=== PATIENT | male | born 1960 | race Caucasian/White ===

== ENCOUNTER 2021-06-06 22:44 | Observation (INO) | payer OTHER, SELFPAY ==
--- NOTE | ~2021-06-06 | XR_ITS ---
EXAMINATION: XR chest 2V DATE: 06/06/2021 23:28 INDICATION: Chest pain. Atrial fibrillation. TECHNIQUE: Frontal and lateral views of the chest were obtained. COMPARISON: CT abdomen 06/03/2005 FINDINGS: The chest demonstrates clear lungs without pneumonia, pleural effusion, or pneumothorax. Th e heart size is normal. Surgical clips in the right upper quadrant are likely from cholecystectomy. T here is a compression fracture in mid thoracic spine. IMPRESSION: 1. No acute cardiopulmonary disease. 2. Age-indeterminate compression fracture in mid thoracic spine. Reviewed, dictated and finalized at location A. RNED [facility]ORTER
--- NOTE | 2021-06-06 22:45 | ECG_ITS ---
Measurements Intervals [place] Rate: 151 P: [place]: 0 QRS: -37 QRSD: 92 T: 83 QT: 307 QTc: 488 Interpretive Statements ATRIAL FIBRILLATION WITH RAPID VENTRICULAR RESPONSE LEFT AXIS DEVIATION INCOMPLETE RIGHT BUNDLE BRANCH BLOCK BORDERLINE ST-T WAVE ABNORMALITY- HIGH LATERAL LEADS BASELINE ARTIFACT- I, II, AVR, AVL ABNORMAL ECG Electronically Signed On 06-07-2021 7:56:32 EDUCATION TECHNICIAN by Marvin Bullock D.O.
[2021-06-06 22:47] VITALS: BP 147/85; PULSE 106; RESP 17; TEMP 37; O2SAT 96
[2021-06-06 23:15] VITALS: BP 157/130; PULSE 133
[2021-06-06] MEDS: dilTIAZem HCl INJ 25 MG/5 ML VIAL 20 MG IV PUSH (23:15)
[2021-06-06] MEDS: dilTIAZem 100 MG/100 ML 100 MG/100 ML BAG IV CONT (23:15)
[2021-06-06 23:27] LABS: Basophils Absolute Auto 0.1 K/mm3 (0.0-0.1); Basophils Percent Auto 1.1 % (0.2-1.2); Eosinophils Absolute Auto 0.5 K/mm3 (0-0.3); Eosinophils Percent Auto 4.7 % (0-4.4); Hematocrit 45.8 % (42.0-52.0); Hemoglobin 16.1 g/dL (14.0-18.0); Immature Granulocyte Absolute 0.04 K/mm3 (0.00-0.031); Immature Granulocyte Percent A 0.4 % (0-0.5); Lymphocytes Absolute Auto 2.91 K/mm3 (0.9-3.2); Lymphocytes Percent Auto 29.2 % (18.3-44.2); Mean Corpuscular HGB Conc 35.2 g/dl (32-36); Mean Corpuscular Hemoglobin 34.8 pg (26-34); Mean Corpuscular Volume 99.1 fl (80-100); Mean Platelet Volume 10.8 fl (7.4-10.4); Monocytes Absolute Auto 0.6 K/mm3 (0.1-0.6); Monocytes Percent Auto 6.2 % (2.6-8.5); Neutrophils Absolute Auto 5.8 K/mm3 (1.3-6.7); Neutrophils Percent Auto 58.4 % (45.5-73.1); Platelet Count Result 223 k/mm3 (150-375); Red Blood Count 4.62 M/mm3 (4.6-6.20); Red Cell Distribution Width 13.2 % (11.5-14.5)
[2021-06-06 23:38] LABS: Alanine Aminotransferase 34 U/L (4-50); Albumin Level 4.6 g/dL (3.5-5.1); Alkaline Phosphatase 47 U/L (38-126); Anion Gap 10 mmol/L (8-16); Aspartate Amino Transferase 39 U/L (17-59); Blood Urea Nitrogen 14 mg/dL (9-20); Calcium 9.5 mg/dL (8.4-10.2); Carbon Dioxide 28 mmol/L (22-30); Chloride 103 mmol/L (98-107); Estimated Glomerular Filt Rate > 60; Glucose 194 mg/dL (65-110); Lipase 147 U/L (23-300); Potassium 3.3 mmol/L (3.4-5.0); Sodium 141 mmol/L (137-145)
[2021-06-06 23:40] VITALS: BP 117/75; PULSE 97; RESP 14; O2SAT 97
[2021-06-06 23:46] LABS: INR 0.9; Prothrombin Time 12.5 Seconds (11.1-14.7)
[2021-06-06 23:47] VITALS: PULSE 89
[2021-06-06 23:47] LABS: Partial Thromboplastin Time 26.6 SECONDS (22.3-36.8)
[2021-06-06 23:50] VITALS: BP 117/75; PULSE 94; RESP 12; O2SAT 97
[2021-06-07] VITALS (20 sets, daily range): BP systolic 94–125; BP diastolic 63–77; PULSE 66–101; RESP 13–18; O2SAT 94–100
[2021-06-07 00:09] LABS: Troponin I 0.013 ng/mL (0.000-0.034)
--- NOTE | 2021-06-07 01:03 | ED.GENADULT ---
HPI - General Adult General Chief complaint: Chest Pain Stated complaint: chest pain Time Seen by Provider: 06/06/21 23:00 History of Present Illness HPI narrative: Patient is a 60-year-old gentleman who presents the emergency department with chief complaint of chest pains and palpitations. Patient states that he has history of hemochromatosis and reports this evening started having some tightness in his chest and reported that he had where he started having palpitations and felt as though his heart was beating extremely fast. Patient denies syncope denies any other injuries patient reports that they have no fever no chills reports no vomiting or diarrhea. Related Data Allergies Allergy/AdvReac Type Severity Reaction Status Date / Time atorvastatin Allergy Unknown bad cramps Verified 06/06/21 22:44 andn diarrhea codeine Allergy Unknown Pt does Verified 06/06/21 22:44 not remember reaction Penicillins Allergy Unknown Pt does Verified 06/06/21 22:44 not remember reaction pollen extracts Allergy Unknown Pt does Verified 06/06/21 22:44 not remember reaction potassium chloride Allergy Unknown Pt does Verified 06/06/21 22:44 not remember reaction simvastatin Allergy Unknown muscle Verified 06/06/21 22:44 cramps Review of Systems Review of Systems: A 10 system review of systems was completed on the patient and is negative except for what is stated in the HPI. Nursing and ancillary documentation was reviewed. [facility] Surgical History Surgical History H/O cataract extraction History of vasectomy Hx of cholecystectomy Status post trigger finger release Family History Family History Mother Diabetes mellitus Sibling Family history of malignant neoplasm of kidney Social History Social History Smoking status: Current some day smoker Smoking end date: 06/20/11 Alcohol intake: current Exam Narrative: GENERAL: Well-appearing, well-nourished, and in no acute distress. HEAD: Normocephalic, atraumatic. EYES: PERRLA and EOMI. ENT: Nares clear, no rhinorrhea or epistaxis. Mucous membranes moist. NECK: Supple. CHEST: Clear to auscultation. No respiratory distress. HEART: Irregular rate and rhythm. No murmur heard. Normal peripheral pulses. ABDOMEN: Soft, nontender, nondistended, normal active bowel sounds. EXTREMITIES: Normal range of motion. No edema. SKIN: Warm, dry, no rash. NEURO: No focal deficits. Alert and oriented x3. PSYCH: Normal mood and affect. Course Course Emergency Course: EKG shows atrial fibrillation with a rate of 151 Chest x-ray shows no evidence of focal infiltrate Vital Signs Vital signs: Vital Signs Temperature 37.0 C 06/06/21 22:47 Pulse Rate 106 H 06/06/21 22:47 Respiratory Rate 17 06/06/21 22:47 Blood Pressure 147/85 H 06/06/21 22:47 Pulse Oximetry 96 06/06/21 22:47 Temperature 37.0 C 06/06/21 22:47 Pulse Rate 80 06/07/21 00:26 Respiratory Rate 18 06/07/21 00:26 Blood Pressure 100/68 06/07/21 00:26 Pulse Oximetry 100 06/07/21 00:26 Medical Decision Making Vital Signs Vital Signs: Vital Signs Temperature 37.0 C 06/06/21 22:47 Pulse Rate 106 H 06/06/21 22:47 Respiratory Rate 17 06/06/21 22:47 Blood Pressure 147/85 H 06/06/21 22:47 Pulse Oximetry 96 06/06/21 22:47 Temperature 37.0 C 06/06/21 22:47 Pulse Rate 80 06/07/21 00:26 Respiratory Rate 18 06/07/21 00:26 Blood Pressure 100/68 06/07/21 00:26 Pulse Oximetry 100 06/07/21 00:26 Lab Data Result diagrams: 06/06/21 23:13 06/06/21 23:13 Labs: Lab Results 06/06/21 06/06/21 06/06/21 Range/Units 23:13 23:13 23:13 WBC 10.0 (4.5-10.0) K/mm3 RBC 4.62 (4.6-6
[2021-06-07 01:46] LABS: Magnesium 2.1 mg/dL (1.6-2.3)
[2021-06-07] MEDS: POTASSIUM CHLORIDE 20 MEQ PACKET (FOR LIQUID) 40 MEQ PO (02:13)
[2021-06-07] MEDS: ENOXAPARIN 30 MG/0.3 ML SYRINGE SUB-Q (02:16)
[2021-06-07] MEDS: ENOXAPARIN 100 MG/ML SYRINGE SUB-Q (02:17)
[2021-06-07 02:30] LABS: Magnesium 2.2 mg/dL (1.6-2.3)
--- NOTE | 2021-06-07 03:31 | PM.IMHP ---
H&P: HPI History of Present Illness Date/Time: 06/07/21 03:31 Chief Complaint: Chest pain palpitations Narrative: Patient is a 60-year-old gentleman who presents the emergency department with chief complaint of chest pains and palpitations. Patient states that he has history of hemochromatosis and reports this evening started having some tightness in his chest and reported that he had where he started having palpitations and felt as though his heart was beating extremely fast. Patient was noted to be sweaty at that moment and hence came to the ER for evaluation. He denies any shortness of breath or nausea, vomiting. Denies any abdominal pain he denies any history of heart disease in the past that she has been diagnosed with. He gets phlebotomy every 2 months for his underlying hemochromatosis. Review of Systems Review of Systems: - CONSTITUTIONAL: Denies weight loss, fever and chills. - HEENT: Denies changes in vision and hearing - RESPIRATORY: Denies SOB and cough. - CV: Reports palpitations and CP. - GI: Denies abdominal pain, nausea, vomiting and diarrhea. - : Denies dysuria and urinary frequency. - MSK: Denies myalgia and joint pain. - SKIN: Denies rash and pruritus. - NEUROLOGICAL: Denies headache and syncope. - PSYCHIATRIC: Denies recent changes in mood. Denies anxiety and depression. All systems reviewed & are unremarkable except as noted in HPI and below Constitutional: Constitutional: Reports fatigue and Reports weakness Neurologic: Reports weakness Endocrine: Endocrine: Reports fatigue PMFSH Surgical History Surgical History H/O cataract extraction History of vasectomy Hx of cholecystectomy Status post trigger finger release Family History Family History Mother Diabetes mellitus Sibling Family history of malignant neoplasm of kidney Social History Social History Smoking status: Current some day smoker Smoking end date: 06/20/11 Alcohol intake: current Meds Home Medications and Allergies Home Medications Medication Instructions Recorded Confirmed Type pitavastatin calcium 2 mg tablet 2 mg PO DAILY #90 tablet 05/01/20 05/30/20 Rx sertraline 50 mg tablet 50 mg PO DAILY #90 tablet 05/05/20 05/30/20 Rx lisinopril 10 See Rx Instructions .ROUTE 10/17/20 Rx mg-hydrochlorothiazide 12.5 mg .COMPLEX #90 tablet tablet metoprolol tartrate 50 mg tablet See Rx Instructions .ROUTE 12/25/20 Rx .COMPLEX #90 tablet allopurinol 100 mg tablet See Rx Instructions .ROUTE 05/04/21 Rx .COMPLEX #90 tablet Allergies Allergy/AdvReac Type Severity Reaction Status Date / Time codeine Allergy Unknown Pt does Verified 06/06/21 22:44 not remember reaction Penicillins Allergy Unknown Pt does Verified 06/06/21 22:44 not remember reaction Vital Signs Vital Signs - 24 hr 06/06/21 22:47 06/06/21 23:15 06/06/21 23:40 Temperature 98.6 F Pulse Rate 106 H 133 H 97 Respiratory Rate 17 14 Blood Pressure 147/85 H 157/130 H 117/75 Pulse Oximetry 96 97 06/06/21 23:47 06/06/21 23:50 06/07/21 00:12 Temperature Pulse Rate 89 94 75 Respiratory Rate 12 14 Blood Pressure 117/75 102/71 Pulse Oximetry 97 97 06/07/21 00:26 06/07/21 01:27 Temperature Pulse Rate 80 79 Respiratory Rate 18 16 Blood Pressure 100/68 98/77 L Pulse Oximetry 100 97 Exam Narrative: GENERAL: Well-appearing, well-nourished, and in no acute distress. HEAD: Normocephalic, atraumatic. EYES: PERRLA and EOMI. ENT: Nares clear, no rhinorrhea or epistaxis. Mucous membranes moist. NECK: Supple. CHEST: Clear to auscultation. No respiratory distress. HEART: Irregular rate and rhythm. No murmur heard. Normal peripheral pulses. ABDOMEN: Soft, nontender, nondistended, normal act
[2021-06-07 05:10] LABS: Troponin I 0.037 ng/mL (0.000-0.034)
--- NOTE | 2021-06-07 06:48 | PC.NURSE ---
Pt updated on plan of care by ED MD. will continue to monitor.
--- NOTE | 2021-06-07 06:51 | PC.NURSE ---
Per minister of religion, pt's am labs already drawn and pt's 6-HR troponin retimed for 0730. pt remains on 5mg cardizem drip ivpb. will continue to monitor.
[2021-06-07 08:12] LABS: Cholesterol 220 mg/dL (0-200); HDL Direct 37 mg/dL; Triglycerides 305 mg/dL (<150)
[2021-06-07 08:16] LABS: Troponin I 0.027 ng/mL (0.000-0.034)
--- NOTE | 2021-06-07 08:16 | PM.IMPN ---
Progress Note: A&P Assessment and Plan (1) Atrial fibrillation with RVR: Code(s): I48.91 - Unspecified atrial fibrillation Status: Acute Assessment and Plan: Newly diagnosed atrial fibrillation with rapid ventricular rate started on Cardizem drip currently rate controlled. continue metoprolol that he takes at home. Lovenox has been started may switch to oral agent at the time of discharge. TSH is normal mildly hypokalemic which will be replaced checked magnesium which normal. chest pain initial troponin negative no prior history of coronary artery disease. Get serial cardiac enzymes. Second set does come back elevated suggesting non ST-elevation [place]. Continue to trend cardiac enzyme cardiology consultation in a.m. 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 Currently hemoglobin is 16/45 (3) Essential (primary) hypertension: Code(s): I10 - Essential (primary) hypertension Status: Acute Assessment and Plan: currently blood pressure controlled BP 125/71. Continue home medications. Patient is on lisinopril hydrochlorothiazide at home also on metoprolol tartrate 50 mg once a day (4) Generalized anxiety disorder: Code(s): F41.1 - Generalized anxiety disorder Status: Acute Assessment and Plan: Currently controlled. Continue home medications. (5) Mixed hyperlipidemia: Code(s): E78.2 - Mixed hyperlipidemia Status: Acute Assessment and Plan: Continue home medications. Patient is on atorvastatin. (6) Obesity, unspecified: Qualifiers: Obesity type: due to excess calories Obesity classification: adult class 2 (BMI 35 - 39.9) Serious obesity comorbidity presence: with serious comorbidity Body mass index: BMI 39.0-39.9 Qualified Code(s): E66.01 - Morbid (severe) obesity due to excess calories; Z68.39 - Body mass index [BMI] 39.0-39.9, adult Code(s): E66.9 - Obesity, unspecified Status: Acute Assessment and Plan: Patient counseled regarding calorie reduction and increase physical activity. Additional Plan # DVT prophylaxis on Lovenox # full code status Subjective Date/time seen: 06/07/21 10:16 Narrative. Patient is a 60-year-old gentleman who presents the emergency department with chief complaint of chest pains and palpitations. Patient states that he has history of hemochromatosis and reports this evening started having some tightness in his chest and reported that he had where he started having palpitations and felt as though his heart was beating extremely fast. Patient was noted to be sweaty at that moment and hence came to the ER for evaluation. He denies any shortness of breath or nausea, vomiting. Denies any abdominal pain he denies any history of heart disease in the past that she has been diagnosed with. He gets phlebotomy every 2 months for his underlying hemochromatosis. Patient presents mild elevation of troponin at 0.0237. Repeat troponin 0.027. S: Patient is examined at the bedside. His was present at the bedside. He denies chest pain. He is feeling comfortable. No active complaints. Review of Systems Review of Systems: All systems reviewed & are unremarkable except as noted in HPI and below Constitutional: Constitutional: Reports as per HPI, Reports fatigue and Reports weakness Eyes: Eyes: Reports as per HPI and Denies blurry vision ENT: Reports as per HPI and Denies epistaxis Cardiovascular: Cardiovascular: Reports as per HPI, Denies chest pain, Denies leg edema, Denies lightheadedness and Denies palpitations Respiratory: Respiratory: Reports as per HPI, Denies cough and Denies dyspnea Gastrointestinal: Gastrointestinal: Reports as per HPI, Denies nausea and Denies vomiting Genitour
[2021-06-07 08:23] LABS: LDL Cholesterol Direct 139 mg/dL
--- NOTE | 2021-06-07 09:19 | PM.CNCAR ---
Assessment and Plan Assessment and plan (1) Atrial fibrillation with RVR: Code(s): I48.91 - Unspecified atrial fibrillation Status: Acute Assessment and Plan: New onset AFib RVR which occurred even though the patient has been compliant with his metoprolol tartrate 50 mg q.p.m., Heart rate now recently controlled with IV diltiazem. TSH normal. No evidence of valve disease or cardiomyopathy. Borderline elevation of troponin, probably due to RVR, but no clinical evidence of CAD. The patient's alcohol intake may be a predisposing factor and may have sleep apnea as well. Check echo. Apnea link to evaluate for sleep apnea CHADS2 Vasc score is 1 (unless he is actually a diabetic) so in the long run he may be able to simply take an aspirin, but since we do not have echo results back yet and we may also be performing a cardioversion I recommend anticoagulation at this point. Change Lovenox to Xarelto 20 mg daily. Change IV diltiazem to p.o. metoprolol Observe overnight. See if the patient converts to sinus rhythm with metoprolol. If not, we can proceed with cardioversion tomorrow then discharge. If the patient chooses not to proceed with cardioversion (he is apprehensive) then we will follow him in the office to see how well he is tolerating the AFib and if he converts spontaneously in the next few weeks. Patient is were counseled extensively about atrial fibrillation, risk of stroke, risk of recurrence, and different approaches to treatment. Tx depends heavily on how symptomatic the patient is as well. (2) Essential (primary) hypertension: Code(s): I10 - Essential (primary) hypertension Status: Acute Assessment and Plan: Will hold lisinopril HCTZ and tx w/ metoprolol for now. (3) Mixed hyperlipidemia: Code(s): E78.2 - Mixed hyperlipidemia Status: Acute Assessment and Plan: Intolerant of pitavastatin due to GI issues. (4) Glucose intolerance: Code(s): E74.39 - Other disorders of intestinal carbohydrate absorption Status: Acute Assessment and Plan: Blood sugar 194 on admission. Check A1C. History of Present Illness History of Present Illness Consult date/time: 06/07/21 09:19 Consult reason: atrial fibrillation Reason For Visit: Atrial fibrillation w rapid ventricular response Narrative: Shaihd Dickens is a60 y.o. male whom I was asked to see at the request of the hospitalists for my advice and opinion regarding his new onset atrial fib RVR and chest pain. H/O hemochromatosis, HTN, hyperlipidemia. The patient was in his normal state of health yesterday, sitting watching TV when he suddenly developed fast heartbeats and palpitations as well as some chest discomfort/indigestion. He got up to take his evening medications but did not feel any better and came to the emergency room with AFib RVR, heart rate in the 150s. He was started on Lovenox and a Cardizem drip and this morning on 5 milligrams/hour his heart rate is running 70-110 beats per minute. He is feeling a lot better. He has never had anything happen like this before. He has hypertension but no diabetes. He has hyperlipidemia and is supposed to take pitavastatin but has stopped it due to GI issues; his had diarrhea with another statin. He does smoke few cigarettes a day. No history of any heart murmurs or thyroid disease. He does have some SMITH (patient and his have discrepant perceptions about how much SMITH he has, but the patient does not perceive a to be a problem) but no exertional chest pain. He snores a lot and has some daytime fatigue but has not been evaluated for sleep apnea. He drinks 3-5 drinks every other day (according to his ; he feels that is less). There are no issues with bleeding.
--- NOTE | 2021-06-07 10:05 | PC.NURSE ---
Called and spoke with Dr. Ge. She wants this RN to stop the diltiazem drip and start patient on scheduled metoprolol.
[2021-06-07] MEDS: ASPIRIN 81 MG ENTERIC TABLET PO (10:09)
[2021-06-07] MEDS: METOPROLOL TARTRATE 50 MG TAB PO (10:09)
--- NOTE | 2021-06-07 14:39 | ECG_ITS ---
Measurements Intervals [place] Rate: 62 P: 11 [place]: 172 QRS: -7 QRSD: 90 T: -42 QT: 433 QTc: 440 Interpretive Statements SINUS RHYTHM NONSPECIFIC T-WAVE ABNORMALITY- DIFFUSE LEADS BASELINE ARTIFACT- II, III, AVR, AVF, V1-V6 BORDERLINE ECG Electronically Signed On 06-07-2021 17:23:37 VISCOSE CELLAR CHARGE HAND by Marvin Bullock D.O.
--- NOTE | 2021-06-07 14:50 | PC.NURSE ---
pt converted to SR. EKG obtained and Dr. Ge notified. She will be coming down to see patient this afternoon
[2021-06-07] MEDS: RIVAROXABAN 20 MG TABLET PO (16:59)
--- NOTE | 2021-06-07 17:35 | PM.DS ---
DS: Admitting Diagnosis Discharge Date 06/07/2021 Admitting Diagnosis (1) Atrial fibrillation with RVR: (2) Disorder of iron metabolism: (3) Essential (primary) hypertension: (4) Generalized anxiety disorder: (5) Mixed hyperlipidemia: (6) Obesity, unspecified: DS: Discharge Diagnosis Discharge Diagnosis (1) Atrial fibrillation with RVR: Code(s): I48.91 - Unspecified atrial fibrillation Status: Acute Assessment and Plan: Newly diagnosed atrial fibrillation with rapid ventricular rate started on Cardizem drip currently rate controlled. continue metoprolol that he takes at home. Lovenox has been started may switch to oral agent at the time of discharge. TSH is normal mildly hypokalemic which will be replaced checked magnesium which normal. chest pain initial troponin negative no prior history of coronary artery disease. Get serial cardiac enzymes. Second set does come back elevated suggesting non ST-elevation [place]. Continue to trend cardiac enzyme cardiology consultation in a.m. already received aspirin will continue 81 mg daily. 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 Currently hemoglobin is 16/45 (3) Essential (primary) hypertension: Code(s): I10 - Essential (primary) hypertension Status: Acute Assessment and Plan: currently blood pressure controlled BP 125/71. Continue home medications. Patient is on lisinopril hydrochlorothiazide at home also on metoprolol tartrate 50 mg once a day (4) Generalized anxiety disorder: Code(s): F41.1 - Generalized anxiety disorder Status: Acute Assessment and Plan: Currently controlled. Continue home medications. (5) Mixed hyperlipidemia: Code(s): E78.2 - Mixed hyperlipidemia Status: Acute Assessment and Plan: Continue home medications. Patient is on atorvastatin. (6) Obesity, unspecified: Qualifiers: Obesity type: due to excess calories Obesity classification: adult class 2 (BMI 35 - 39.9) Serious obesity comorbidity presence: with serious comorbidity Body mass index: BMI 39.0-39.9 Qualified Code(s): E66.01 - Morbid (severe) obesity due to excess calories; Z68.39 - Body mass index [BMI] 39.0-39.9, adult Code(s): E66.9 - Obesity, unspecified Status: Acute Assessment and Plan: Patient counseled regarding calorie reduction and increase physical activity. DS: Summary Hospital Course Reason for hospitalization: Chest pain and palpitations. Hospital Course: New onset AFib RVR which occurred even though the patient has been compliant with his metoprolol tartrate 50 mg q.p.m., Heart rate now recently controlled with IV diltiazem. TSH normal. No evidence of valve disease or cardiomyopathy. Borderline elevation of troponin, probably due to RVR, but no clinical evidence of CAD. The patient's alcohol intake may be a predisposing factor and may have sleep apnea as well. Referral to apnea link to evaluate for sleep apnea CHADS2 Vasc score is 1 (unless he is actually a diabetic) so in the long run he may be able to simply take an aspirin, but since we do not have echo results back yet and we may also be performing a cardioversion I recommend anticoagulation at this point. Per cardiology, we changed Lovenox to Xarelto 20 mg daily. Patient was transitioned from IV diltiazem to p.o. metoprolol. Plan was to observe the patient overnight. He spontaneously converted to sinus rhythm with metoprolol. He was cleared by cardiology for discharge. Patient will follow up with cardiology as an outpatient. Status at Discharge Functional status at discharge: independent ambulation Overall status at discharge: patient is back to baseline Time Spent with Patient Time attestation: Total time spent providing and/or coordinating discharge services
== END 2021-06-07 18:08 | disposition home or self-care (01) ==
LOC: ANHED 06-07 01:26 → ANHIMU 06-07 17:34 → ANH3MEDSUR 06-09 11:23
PROVIDERS: Admitting Provider Internal Medicine; Emergency Provider Emergency Medicine; PCP Family Medicine; Visit Provider Internal Medicine
DX: I48.91 Unspecified atrial fibrillation (principal); E83.119 Hemochromatosis, unspecified; R07.9 Chest pain, unspecified; E78.5 Hyperlipidemia, unspecified; E66.01 Morbid (severe) obesity due to excess calories; F17.210 Nicotine dependence, cigarettes, uncomplicated; F41.9 Anxiety disorder, unspecified; I10 Essential (primary) hypertension; Z68.39 Body mass index [BMI] 39.0-39.9, adult; Z90.49 Acquired absence of other specified parts of digestive tract
CPT/HCPCS: 36415; 71046; 80053; 80061; 83690; 83735; 84443; 84484; 85025; 85610; 85730; 93005; 96365; 96366; 96372; 99285; A9270; G0378; J1650

== ENCOUNTER → 2021-07-03 01:01 | Outpatient (CLI) | payer OTHER, SELFPAY ==
[2021-07-04 18:18] LABS: SARS-CoV-2 RNA PCR Negative
== END ==
PROVIDERS: PCP Family Medicine; Visit Provider Family Medicine
DX: J02.9 Acute pharyngitis, unspecified (principal); R51.9 Headache, unspecified; Z20.822 Contact with and (suspected) exposure to COVID-19
CPT/HCPCS: C9803; U0003; U0005

== ENCOUNTER 2021-07-09 07:37 | Outpatient (CLI) | payer OTHER, SELFPAY ==
--- NOTE | 2021-07-15 13:12 | WPDHOMESLEEP ---
Sleep Study - Home Unattended Date of Study: 07/09/21 Ordering Provider: Netta Ge MD Interpreting Provider: Ursula Oconnell MD Home Sleep Study Type: Watch PAT Height: 1.85 m Weight: 131.542 kg Body Mass Index: 38.2 Neck Circumference (inches): 18 [place]: 4 Reason for Sleep Study Atrial fibrillation, snoring, night time awakenings Sleep History Shahid Dickens is a 60 year old male with hypertension, gout and atrial fibrillation on chronic anticoagulation. He also has generalized anxiety and hyperlipidemia. His biotech production specialist referred him for a sleep study for concerns associated with his new onset atrial fib with rapid ventricular response which occurred even though he was compliant with metoprolol and diltiazem. There is no evidence of cardiomyopathy. He does consume alcohol. He does not awaken from sleep feeling short of breath. He does not awaken at night with heartburn, belching or coughing. He frequently snores and occasionally it is loud enough that others complain about it. He rarely has trouble sleeping with a cold. He does not wake up gasping for breath at night. He does not have breathing problems at night observed by others. He rarely sweats excessively at night. He does not notice his heart pounding or beating irregularly at night. He rarely falls asleep during the day, never falls asleep involuntarily never falls asleep while driving. He does not have loss of muscle tone with strong emotion. He does not have daytime difficulties due to excessive sleepiness. He does not feel paralyzed on waking or falling asleep. He occasionally has vivid dreamlike scenes upon awakening or falling asleep. He is rarely afraid to go to sleep. He occasionally has nightmares. He occasionally remembers his dreams. He occasionally has racing thoughts. He rarely feels sad or depressed. He occasionally has anxiety. He rarely has muscular tension or notices parts of his body jerking. He rarely kicks at night. He rarely has crawling and aching feelings in his legs. He rarely has any kind of leg pain at night. He denies morning jaw pain and denies grinding his teeth during sleep. He rarely is bothered by pain during the day. He is not awakened by pain during the night. He frequently wakes up feeling stiff in the morning but rarely with sore or achy muscles are pain in the neck and spine. He has fatigue and feels unable to relax. Normal bedtime is Between 9:10 p.m., taking 10-1220 minutes fall asleep typically waking twice at night to urinate, and returns to sleep minutes. He wakes the morning at 6:00 a.m.. His weekend schedule is the same. He estimates getting 8 hours of sleep at night. He does not take naps in the afternoon or evening. A short 10 or 15 minute nap may be refreshing. He is usually drowsy in the morning for 3 hours or longer. He feels better in the afternoon compared to other times of day. Habits: He smokes cigarettes several days a week. Caffeine 2 beverages a day. Alcohol 2 beverages a day on average, sometimes 3-5 drinks every other day. No recreational drugs. [facility] Past Medical History Medical History (Updated 07/15/21 @ 13:29 by Ursula Oconnell MD) Atrial fibrillation with RVR Essential (primary) hypertension Generalized anxiety disorder Glucose intolerance Gout Hemochromatosis Followed by Dr. Blevins, has phlebotomy every 2 months for the past 20 years. Mixed hyperlipidemia Surgical History Surgical History H/O cataract extraction History of vasectomy Hx of cholecystectomy Status post trigger finger release Family History Family History Mother Diabetes mellitus Chronic kidney disease Sibling Family history of malignant neoplasm of kidney Father Atrial fibrillation Pacemaker Social History Social History Soci
[2021-07-15 13:33] VITALS: BMI 38.2
== END 2021-07-10 09:03 | disposition home or self-care (01) ==
LOC: ANHCSM 07:37
PROVIDERS: PCP Family Medicine; Visit Provider Internal Medicine Cardiovascular Disease
DX: G47.33 Obstructive sleep apnea (adult) (pediatric) (principal)
CPT/HCPCS: 95800

== ENCOUNTER 2023-03-21 10:51 | Emergency (ER) | payer OTHER, SELFPAY ==
[2023-03-21 11:07] VITALS: BP 174/108; PULSE 72; RESP 18; TEMP 36.9; O2SAT 99
--- NOTE | 2023-03-21 12:04 | ED.URI ---
HPI - URI/Sore Throat General Chief Complaint: Upper Respiratory Infection Stated Complaint: Covid test Time Seen by Provider: 03/21/23 12:04 Source: patient, RN notes reviewed and old records reviewed Mode of arrival: ambulatory Limitations: no limitations History of Present Illness HPI Narrative: 62 year old male who presents to [facility] with stated need for documented COVID test before he can return to work. Patient denies any sore throat or any nasal drainage no fever or any body aches. Patient reports that he was exposed at work and he has to have documented COVID test 6 days after exposure before he can return to work. 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 Was seen by PCP in office 3 days ago for visit and go flu shot at that time. MD elicited complaint: other (exposure to COVID) Able to tolerate fluids by mouth: Yes Treatments prior to arrival: none Related Data Allergies Allergy/AdvReac Type Severity Reaction Status Date / Time codeine Allergy Unknown Pt does Verified 03/21/23 11:15 not remember reaction Penicillins Allergy Unknown Pt does Verified 03/21/23 11:15 not remember reaction Review of Systems Review of Systems: CONSTITUTIONAL: Denies malaise, chills, sweats, or fever. EYES: Denies visual changes, redness, or discharge. ENT: Reports no rhinorrhea, congestion, sinus pain, otalgia and sore throat. CARDIOVASCULAR: Denies chest pain, palpitations, or edema. RESPIRATORY: Reports no cough.? Denies dyspnea. GASTROINTESTINAL: Denies abdominal pain, nausea, vomiting, diarrhea SKIN: Denies rash or itching. MUSCULOSKELETAL: Denies myalgia. NEUROLOGIC: Denies headache. All systems reviewed & are unremarkable except as noted in HPI and below PMFSH Past Medical History Medical History Actinic keratoses Atrial fibrillation with RVR Essential (primary) hypertension Generalized anxiety disorder Gout Hemochromatosis Followed by Dr. Blevins, has phlebotomy every 2-3 months for the past 20 years. Mixed hyperlipidemia Seborrheic keratoses, inflamed Surgical History Surgical History H/O cataract extraction History of vasectomy Hx of cholecystectomy Status post trigger finger release Family History Family History Mother Diabetes mellitus Chronic kidney disease Sibling Family history of malignant neoplasm of kidney Father Atrial fibrillation Pacemaker Social History Social History Smoking packs per day: 1 Smoking cigarettes per day: 20.0 Years smoked: 5 Smoking pack-years: 5.00 Smoking status: Former smoker Tobacco type: cigarettes Smoking end date: 06/20/11 Alcohol intake: current Substance use type: does not use Lack of Transportation: No Lack of Food: Never True Current Housing: I Have Housing Concerned About Future Housing: No Difficulty Paying Gas/Electric Bills: No Difficulty Paying for Meds: No Currently Unemployed: No Education: Trade/Vocational Certificate Difficulty w/ Childcare or Family Care: No Comments At time of signature, agree with nursing past medical, surgical, social and family history. There is no relevant family history pertinent to the presenting complaint Exam Narrative: GENERAL: Well-appearing, well-nourished, and in no acute distress. HEAD: Normocephalic EYES: PERRLA, conjunctivae emmanuel ENT: Nares clear, turbinates edematous and erythematous,no discharge. Mucous membranes moist. TM pearly henry with dull light reflex bilaterally; no tragal tenderness. Oropharynx without lesions. Tonsils not enlarged and without exudate, no drooling, no hoarseness, no trismus, uvula midline. NECK: Supple. No lymphadenopathy CHEST: Clear to auscultation, breath soun
== END 2023-03-21 12:21 | disposition home or self-care (01) ==
PROVIDERS: Emergency Provider Registered Nurse; PCP Family Medicine
DX: Z20.822 Contact with and (suspected) exposure to COVID-19 (principal); I48.20 Chronic atrial fibrillation, unspecified; I10 Essential (primary) hypertension; E78.2 Mixed hyperlipidemia; Z87.891 Personal history of nicotine dependence
CPT/HCPCS: 87426; 99213; C9803; G0463

== ENCOUNTER 2025-04-25 14:09 | Inpatient (IN) | payer OTHER, SELFPAY ==
[2025-04-24 14:58] VITALS: BMI 37.3
[2025-04-25] VITALS (24 sets, daily range): BP systolic 111–154; BP diastolic 65–98; PULSE 53–64; RESP 12–18; TEMP 36.5–36.8; O2SAT 95–100; BMI 37.0
[2025-04-25 09:16] LABS: Hematocrit 46.1 % (42.0-52.0); Hemoglobin 16.0 g/dL (14.0-18.0); Immature Granulocyte Percent A 0.4 % (0-0.5); Lymphocytes Absolute Auto 2.35 K/mm3 (0.9-3.2); Mean Corpuscular HGB Conc 34.7 g/dl (32-36); Mean Corpuscular Hemoglobin 33.3 pg (26-34); Mean Corpuscular Volume 95.8 fl (80-100); Nucleated Red Blood Cells Absolute Auto 0.000 K/mm3 (0.0-0.012); Nucleated Red Blood Cells Perc 0.0 % (0.0-0.2); Platelet Count Result 213 k/mm3 (150-375); Red Blood Count 4.81 M/mm3 (4.6-6.20); White Blood Count 9.5 K/mm3 (4.5-10.0)
--- NOTE | 2025-04-25 09:21 | WPDHPUPDATE1 ---
History and Physical Update Update Date/Time: 04/25/25 09:21 History and Physical has been reviewed, including an updated exam of the patient. There are NO changes in the patient's condition. Risks, benefits, and alternatives have been discussed and questions answered. Patient agrees to proceed with procedure.
--- NOTE | 2025-04-25 09:22 | WPDMODSED ---
Moderate Sedation Note-Pt Data Patient Data Allergies Allergy/AdvReac Type Severity Reaction Status Date / Time codeine Allergy Unknown Pt does Verified 04/25/25 08:55 not remember reaction Penicillins Allergy Unknown Pt does Verified 04/25/25 08:55 not remember reaction Home Medications ?Medication ?Instructions ?Recorded ?Confirmed ?Type metoprolol succinate 100 mg 100 mg PO .nightly #90 tabs 06/07/21 04/24/25 Rx tablet,extended release 24 hr aspirin 81 mg tablet,delayed 81 mg PO DAILY #90 tabs 07/27/22 04/24/25 Rx release (Adult Low Dose Aspirin) lisinopril 10 See Rx Instructions .Route 10/15/24 04/24/25 Rx mg-hydrochlorothiazide 12.5 mg .COMPLEX #90 tabs tablet rosuvastatin 10 mg tablet 10 mg PO DAILY #90 tabs 10/16/24 04/24/25 Rx allopurinol 100 mg tablet See Rx Instructions .Route 03/11/25 04/24/25 Rx .COMPLEX #90 tabs Sedation/Anesthesia: No previous sedation/anesthesia problems (including family history). [facility] Past Medical History Medical History Hemochromatosis Followed by Dr. Blevins, has phlebotomy every 2-3 months for the past 20 years. Atrial fibrillation with RVR Gout Actinic keratoses Essential (primary) hypertension Generalized anxiety disorder Mixed hyperlipidemia Seborrheic keratoses, inflamed Surgical History Surgical History Hx of cholecystectomy H/O cataract extraction History of vasectomy Status post trigger finger release Family History Family History Mother Diabetes mellitus Chronic kidney disease Sibling Family history of malignant neoplasm of kidney Father Atrial fibrillation Pacemaker Social History Social History Smoking packs per day: 1 Smoking cigarettes per day: 20.0 Years smoked: 5 Smoking pack-years: 5.00 Smoking status: Never smoker Tobacco type: cigarettes Second hand tobacco smoke exposure: No Smoking end date: 06/20/11 Alcohol intake: never Substance use: never Substance use type: does not use Lack of Transportation: No Lack of Food: Never True Current Housing: I Have Housing Concerned About Future Housing: No Difficulty Paying Gas/Electric Bills: No Difficulty Paying for Meds: No Currently Unemployed: No Education: Trade/Vocational Certificate Difficulty w/ Childcare or Family Care: No Living arrangements: with family Spiritual care concerns: No Mod Sed Physical Exam Physical Exam Pre Procedural Exam: Normal: Lungs, Heart Size and Heart Rate Hours since solid foods: 12 Hours since liquid intake: 12 Mallampati Classification: class III Internal Medicine - PN: Obj Da Vital Signs Vital Signs: Vital Signs - 24 hr 04/25/25 08:57 Temperature 36.5 C Pulse Rate 60 Respiratory Rate 14 Blood Pressure 154/98 H Pulse Oximetry 98 Oxygen Delivery Room Air Labs 04/25/25 09:05 04/25/25 09:05 Labs: Laboratory Results - last 24 hr 04/25/25 09:05 WBC 9.5 RBC 4.81 Hgb 16.0 Hct 46.1 MCV 95.8 MCH 33.3 MCHC 34.7 RDW 13.4 Plt Count 213 MPV 10.5 H Immature Gran % (Auto) 0.4 Neut % (Auto) 56.8 Lymph % (Auto) 24.8 Gilliam % (Auto) 6.3 Eos % (Auto) 10.5 H Baso % (Auto) 1.2 Lymph # (Auto) 2.35 Gilliam # (Auto) 0.6 Eos # (Auto) 1.0 H Baso # (Auto) 0.1 Abs Immat Gran (auto) 0.04 H Absolute Neuts (auto) 5.4 Absolute Nucleated RBC 0.000 Nucleated RBC % 0.0 ASA Classification/Sedation ASA Classification/Sedation ASA Class: III Emergent: No Risks: Risks, benefits and alternatives explained and patient/family accepted plan for sedation. Patient re-evaluated immediately prior to sedation.
[2025-04-25 09:33] LABS: Anion Gap 10 mmol/L (4-12); Blood Urea Nitrogen 17 mg/dL (9-20); Calcium 9.6 mg/dL (8.4-10.2); Carbon Dioxide 25 mmol/L (22-30); Chloride 105 mmol/L (98-107); Estimated CRCL calculation 109 ml/min; Estimated Glomerular Filt Rate > 60; Glucose 114 mg/dL (65-110); Potassium 4.2 mmol/L (3.4-5.0); Sodium 140 mmol/L (137-145)
--- NOTE | 2025-04-25 11:45 | WPDCARDPROC ---
Cardiac Cath Procedure Note Date of procedure:: 04/25/25 Performing physician:: CATHETERIZATION LABORATORY REPORT Procedure Date: 04/25/2025 Referring Physician: Dr. Suarez Anesthesia: Versed and Fentanyl were ordered and given in my presence at 1006, procedure ended at 1026. Supervision of nurse, Johnna Recio monitored moderate sedation with Versed and Fentanyl was provided for 20 minutes. Pre-op Diagnosis: Abnormal stress test Post-op Diagnosis: Abnormal stress test Procedure(s): Left heart catheterization with coronary angiography Access Site: Right radial artery Brief History and Clinical Indications: 64-year-old man with paroxysmal atrial fibrillation, hypertension, hyperlipidemia who has been experiencing angina with subsequent abnormal stress test for which a cardiac catheterization with possible PCI had been recommended. All risks, benefits and alternatives to left heart catheterization with or without percutaneous coronary intervention was discussed at length with the patient. Risk of complications including but not limited to bleeding, infection, arrhythmia, stroke, worsening kidney function, blood loss, groin hematoma, limb loss, emergency coronary artery bypass grafting, and even were discussed with the patient and all questions were answered. The patient understood and wished to proceed. Time out called, patient name, date of , medical record number, allergies, procedure performed, identify Electronic Equipment Repairmen, patient and staff member concurred with accurate data, procedure carried on. Findings: LEFT HEART CATHETERIZATION FINDINGS: 1. Left main: The left main coronary artery has diffuse 10% stenosis. 2. Left anterior descending: The LAD has ostial 10-20% stenosis followed by severely calcified 20-30% proximal stenosis leading into an area severely calcified 90% stenosis followed shortly by an area of 99% severely calcified stenosis in the mid vessel at the bifurcation of the diagonal branch. 3. Left circumflex: The left circumflex artery and the main marginal branches have mild luminal irregularities without any significant obstructive angiographic disease. The left circumflex is dominant vessel. 4. Right coronary artery: The RCA is a nondominant vessel with severe distal disease. 5. Left ventricle: A. End-diastolic pressure 21 mmHg. B. LV gram deferred. C. No significant gradient across aortic valve on catheter pullback. 6. Opening AO pressure 159/74 and closing AO pressure 154/86 Description of Procedure: Informed consent signed and placed in the chart. Patient transferred to lab support technician room. Prepped and draped in usual sterile fashion. 2% lidocaine injected subcutaneously in right wrist area. 22-gauge venipuncture catheter used to access the right radial artery with the Seldinger technique. 6-FR slender sheath placed in right radial artery. Nitroglycerin 200mcg, Verapamil 2.5mg, and Heparin 5000U was given intraarterial through the sheath. J wire advanced under fluoroscopy. A 5F Ultra diagnostic catheter crossed the aortic valve to measure LVEDP and aortic valve gradient on pull back. The diagnostic catheter was then used to engage Left Main Coronary Artery and Right Coronary Artery. Due to the catheter not being seated well in the ostium of the LMCA, the catheter was switched out for a JL 3.5 diagnostic catheter. Multiple orthogonal angiogram obtained and reviewed Hemostasis was achieved by application of TR band. Assessment: Severely calcified obstructive single vessel CAD Post Operative Condition: Stable No significant blood loss Disposition: Home Plan: A detailed discussion with the patient occurred regarding the coronary findings as well as the management including both medical, surgical, and interventional. Ultimately, we agreed to proceed forward with atherectomy assisted PCI of the proximal to mid LAD. We will start the patient on Plavix 75 mg p.o. daily and schedule him for atherectomy assisted PCI. One patient will continue aspirin 81 mg p.o. daily and high-intensity statin. He will continue beta-blockers. Patient was informed that if he has chest pain at rest to go to the emergency room. Dat Justice Interventional Cardiology
--- NOTE | 2025-04-25 13:56 | SUR.PHASEII ---
This RN was getting ready to discharge the patient. IV had been removed, paperwork had been talked over. The patients spouse brought up concerns as to why his PCI is not more urgent due to his symptoms he has been having over the past few weeks. MD was called to bedside to talk over options with patient and spouse. Pt and spouse would feel better to be admitted then transferred to [facility]. This RN will admit the patient to IMU.
--- NOTE | 2025-04-25 14:14 | ECG_ITS ---
Test Date: 2025-04-25 14:35:41 Measurements Intervals [place] Rate: 55 P: 1 [place]: 176 QRS: -24 QRSD: 93 T: 31 QT: 442 QTc: 426 Interpretive Statements SINUS BRADYCARDIA WITH OCCASIONAL VENTRICULAR PREMATURE COMPLEXES BORDERLINE LEFT AXIS DEVIATION [QRS AXIS < -20] No previous ECG available for comparison Electronically Signed On 04-25-2025 15:00:28 CLERK ENTRY LEVEL by Dat Justice M.D.
[2025-04-25] MEDS: SODIUM CHLORIDE 0.9% IV 1,000 ML 125 ML IV CONT (14:38)
--- NOTE | 2025-04-25 14:41 | PM.IMHP ---
H&P: HPI History of Present Illness Date/Time: 04/25/25 14:41 Chief Complaint: Chest pain Narrative: 64-year-old man with paroxysmal atrial fibrillation (not on anticoagulation secondary to low AFib burden), hypertension, and hyperlipidemia who was been experiencing angina for the past 6 months for which she received a stress test that was positive and had under went of left heart catheterization today found to have critical mid LAD stenosis status severely/heavily calcified for which outpatient PCI with atherectomy had been recommended. At time of discharge, his stated that there were several instances when he was having chest pain at rest is therefore prompting inpatient admission for concerns of unstable angina. Currently he is chest pain-free. Review of Systems Cardiovascular: Cardiovascular: Reports as per HPI Respiratory: Respiratory: Reports as per HPI [facility] Past Medical History Medical History Hemochromatosis Followed by Dr. Blevins, has phlebotomy every 2-3 months for the past 20 years. Atrial fibrillation with RVR Gout Actinic keratoses Essential (primary) hypertension Generalized anxiety disorder Mixed hyperlipidemia Seborrheic keratoses, inflamed Surgical History Surgical History Hx of cholecystectomy H/O cataract extraction History of vasectomy Status post trigger finger release Family History Family History Mother Diabetes mellitus Chronic kidney disease Sibling Family history of malignant neoplasm of kidney Father Atrial fibrillation Pacemaker Social History Social History Smoking packs per day: 1 Smoking cigarettes per day: 20.0 Years smoked: 5 Smoking pack-years: 5.00 Smoking status: Never smoker Tobacco type: cigarettes Second hand tobacco smoke exposure: No Smoking end date: 06/20/11 Alcohol intake: never Substance use: never Substance use type: does not use Lack of Transportation: No Lack of Food: Never True Current Housing: I Have Housing Concerned About Future Housing: No Difficulty Paying Gas/Electric Bills: No Difficulty Paying for Meds: No Currently Unemployed: No Education: Trade/Vocational Certificate Difficulty w/ Childcare or Family Care: No Living arrangements: with family Spiritual care concerns: No Meds Home Medications and Allergies Home Medications ?Medication ?Instructions ?Recorded ?Confirmed ?Type metoprolol succinate 100 mg 100 mg PO .nightly #90 tabs 06/07/21 04/24/25 Rx tablet,extended release 24 hr aspirin 81 mg tablet,delayed 81 mg PO DAILY #90 tabs 07/27/22 04/24/25 Rx release (Adult Low Dose Aspirin) lisinopril 10 See Rx Instructions .Route 10/15/24 04/24/25 Rx mg-hydrochlorothiazide 12.5 mg .COMPLEX #90 tabs tablet rosuvastatin 10 mg tablet 10 mg PO DAILY #90 tabs 10/16/24 04/24/25 Rx allopurinol 100 mg tablet See Rx Instructions .Route 03/11/25 04/24/25 Rx .COMPLEX #90 tabs clopidogrel 75 mg tablet (Plavix) 75 mg PO DAILY #90 tabs 04/25/25 Rx Allergies Allergy/AdvReac Type Severity Reaction Status Date / Time codeine Allergy Unknown Pt does Verified 04/25/25 14:22 not remember reaction Penicillins Allergy Unknown Pt does Verified 04/25/25 14:22 not remember reaction Vital Signs Vital Signs - 24 hr 04/25/25 08:57 04/25/25 10:45 04/25/25 11:00 Temperature 36.5 C Pulse Rate 60 58 L 59 L Respiratory Rate 14 14 13 Blood Pressure 154/98 H 147/81 H 127/83 Pulse Oximetry 98 96 96 Oxygen Delivery Room Air Room Air Room Air 04/25/25 11:15 04/25/25 11:30 04/25/25 11:45 Temperature Pulse Rate 59 L 57 L 57 L Respiratory Rate 18 12 13 Blood Pressure 145/92 H 128/80 132/81 Pulse Oximetry 100 97 95 Oxygen Delivery Room Air Room Air Room Air 04/25/25 12:00 04/25/25 12:15 04/25/25 12:30 Temperature Pulse Rate 56 L 56 L 55 L Respiratory Rate 14 13 14 Blood Pressure 133/90 127/80 128/79 Pulse Oximetry 96 96 98 Oxygen Delivery Room Air Room Air Room Air 04/25/25 12:45 04/25/25 13:00 04/25/25 13:15 Temperature Pulse Rate 57 L 58 L 55 L Respiratory Rate 15 12 14 Blood Pressure 124/71 133/89 129/76 Pulse Oximetry 97 97 96 Oxygen Delivery Room Air Room Air Room Air 04/25/25 13:30 04/25/25 13:45 04/25/25 14:15 Temperature Pulse Rate 53 L 56 L 62 Respiratory Rate 16 14 18 Blood Pressure 132/74 122/89 150/79 H Pulse Oximetry 96 96 97 Oxygen Delivery Room Air Room Air Exam Const: General: comfortable HENMT: Mouth: Yes moist mucous membranes Eyes: EOM: EOMs intact bilaterally Neck: Neck: no JVD Resp: Effort & Inspection: normal respiratory effort Auscultation: clear to auscultation bilaterally Cardio: Rate: regular rate Rhythm: regular rhythm GI: GI Palp: Yes Soft to palpation Neuro: Speech: normal speech Extrem: General: normal to inspection Other: Right radial pulse 2 +. No hematoma. Neuro/vascular/motor function intact in right hand H&P: Results Labs Labs: Short CBC 04/25/25 Range/Units 09:05 WBC 9.5 (4.5-10.0) K/mm3 Hgb 16.0 (14.0-18.0) g/dL Hct 46.1 (42.0-52.0) % Plt Count 213 (150-375) k/mm3 [facility] 04/25/25 09:05 Sodium 140 Potassium 4.2 Chloride 105 Carbon Dioxide 25 BUN 17 Creatinine 0.81 Glucose 114 H Calcium 9.6 Assessment and Plan Assessment and plan (1) Chest pain: Code(s): R07.9 - Chest pain, unspecified Status: Acute (2) Paroxysmal A-fib: Code(s): I48.0 - Paroxysmal atrial fibrillation Status: Acute (3) Essential (primary) hypertension: Code(s): I10 - Essential (primary) hypertension Status: Acute (4) Mixed hyperlipidemia: Code(s): E78.2 - Mixed hyperlipidemia Status: Acute Plan 64-year-old man with paroxysmal atrial fibrillation (not on anticoagulation secondary to low AFib burden), hypertension, and hyperlipidemia who was been experiencing angina for the past 6 months for which she received a stress test that was positive and had under went of left heart catheterization today found to have critical mid LAD stenosis status severely/heavily calcified for which atherectomy assisted PCI has been recommended Angina -given concerns for ongoing unstable angina, patient will be admitted and transfer to [facility] for atherectomy assisted PCI -Dr. 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
--- NOTE | 2025-04-25 15:03 | ADMGEN ---
This patient, Shahid Dickens, was admitted to [facility]. Patient/family oriented to hospital policies and general routines including ID bracelet, bed and alarms, visiting hours, pain management, procedures, bathroom and other care routines, personal items, smoking policy, room service/diet, and visiting hours. Information on how to activate the Rapid Response Team has been discussed. Patient/Family are encouraged to report perceived risks to care and to ask questions if they do not understand what they are told or what they should do.
--- NOTE | 2025-04-25 15:19 | PM.TDS ---
Transfer Discharge Sum: Prov Provider Date of admission: 04/25/25 14:09 Primary care physician: Tyrone Tidwell APRN Admitting clinician: Dat Justice MD Attending physician on admission: Dat Justice Consults: 04/25/25 Cardiopulmonary Rehabilitation Consult Routine Comment: Consult Plan: Evaluate for Eligibility Attending physician on discharge: Dat Justice Discharging clinician: Dat Justice Anticipated date of transfer: 04/25/25 Receiving physician/facility: Dr. Quarles/[facility] DS: Admitting Diagnosis Discharge Date 04/25/2025 Admitting Diagnosis Chest pain DS: Discharge Diagnosis Discharge Diagnosis (1) Chest pain: Code(s): R07.9 - Chest pain, unspecified Status: Acute (2) Paroxysmal A-fib: Code(s): I48.0 - Paroxysmal atrial fibrillation Status: Acute (3) Mixed hyperlipidemia: Code(s): E78.2 - Mixed hyperlipidemia Status: Acute (4) Essential (primary) hypertension: Code(s): I10 - Essential (primary) hypertension Status: Acute (5) Coronary artery disease: Code(s): I25.10 - Atherosclerotic heart disease of [place] coronary artery without angina pectoris Status: Acute Plan Plan to transfer to [facility] for atherectomy assisted PCI to the mid LAD Transfer Discharge Sum: Med Medications Active and Home Medications: Home Medications metoprolol succinate 100 mg tablet,extended release 24 hr 100 mg PO .nightly #90 tabs 06/07/21 [Rx Confirmed 04/24/25] aspirin 81 mg tablet,delayed release (Adult Low Dose Aspirin) 81 mg PO DAILY #90 tabs 07/27/22 [Rx Confirmed 04/24/25] lisinopril 10 mg-hydrochlorothiazide 12.5 mg tablet See Rx Instructions .Route .COMPLEX #90 tabs 10/15/24 [Rx Confirmed 04/24/25] rosuvastatin 10 mg tablet 10 mg PO DAILY #90 tabs 10/16/24 [Rx Confirmed 04/24/25] allopurinol 100 mg tablet See Rx Instructions .Route .COMPLEX #90 tabs 03/11/25 [Rx Confirmed 04/24/25] clopidogrel 75 mg tablet (Plavix) 75 mg PO DAILY #90 tabs 04/25/25 [Rx] Active Medications Allopurinol (Allopurinol 100 Mg Tablet) 100 mg BY MOUTH DAILY ERIKA Aspirin (Aspirin 81 Mg Enteric Tablet) 81 mg PO DAILY [facility] Clopidogrel Bisulfate (Clopidogrel Bisulfate 75 Mg Tablet) 75 mg PO QAM [facility] Enoxaparin Sodium (Enoxaparin 40 Mg/0.4 Ml Syringe) 40 mg SUB-Q DAILY [facility] Sodium Chloride (Normal Saline Iv) 1,000 mls @ 125 mls/hr IV CONT .Q8H ONE Stop: 04/25/25 18:43 Last Admin: 04/25/25 14:38 Dose: 125 mls/hr Lisinopril (Lisinopril 10 Mg Tablet) 10 mg PO DAILY [facility] Metoprolol Succinate (Metoprolol Succinate Ext Rel 100 Mg Tabcr) 100 mg PO HS ERIKA Rosuvastatin Calcium (Rosuvastatin 10 Mg Tablet) 10 mg PO DAILY [facility] Transfer Discharge Sum: Hosp Hospital Course Hospital course: Shahid Dickens is a 64 year old male with paroxysmal atrial fibrillation (not on anticoagulation due to low atrial fibrillation burden), hypertension, hyperlipidemia who was been experiencing angina found to have an abnormal stress test who underwent cardiac catheterization found to have severely/heavily calcified mid LAD lesions for which atherectomy assisted PCI had been recommended for which now he will be transferred to a facility capable performing such procedure. Patient Condition: Stable Time Spent with Patient Time attestation: Total time spent providing and/or coordinating transfer services: Total time spent: Greater than 30 minutes Exam Const: General: comfortable HENMT: Mouth: Yes moist mucous membranes Eyes: EOM: EOMs intact bilaterally Neck: Neck: no JVD Resp: Effort & Inspection: normal respiratory effort Auscultation: clear to auscultation bilaterally Cardio: Rate: regular rate Rhythm: regular rhythm GI: GI Palp: Yes Soft to palpation Extrem: General: normal to inspection Other: Right radial pulse 2 +. No hematoma. Neuro/motor/vascular intact the right hand DS: Data Data Completed and Pending Labs on day of discharge: Labs from last 24 hours 04/25/25 09:05 WBC 9.5 RBC 4.81 Hgb 16.0 Hct 46.1 MCV 95.8 MCH 33.3 MCHC 34.7 RDW 13.4 Plt Count 213 MPV 10.5 H Immature Gran % (Auto) 0.4 Neut % (Auto) 56.8 Lymph % (Auto) 24.8 [place] % (Auto) 6.3 Eos % (Auto) 10.5 H Baso % (Auto) 1.2 Lymph # (Auto) 2.35 [place] # (Auto) 0.6 Eos # (Auto) 1.0 H Baso # (Auto) 0.1 Abs Immat Gran (auto) 0.04 H Absolute Neuts (auto) 5.4 Absolute Nucleated RBC 0.000 Nucleated RBC % 0.0 Sodium 140 Potassium 4.2 Chloride 105 Carbon Dioxide 25 Anion Gap 10 BUN 17 Creatinine 0.81 Estim Creat Clear Calc 109 Estimated GFR > 60 Glucose 114 H Calcium 9.6
--- OUTSIDE RECORDS SUMMARY | 2025-04-25 15:55 | XMS_ITS | Clinical Summary ---
Author Organization [facility] Address [address] [place] [address] Care Team Providers Care Airplane Inspector Name Role Phone Nikki Vigil MD Primary Care Provider + Ioana Pack CORPORATE WEBMASTER Unavailable [phone] Allergies Active Allergy Reactions Criticality Noted Date Comments Atorvastatin Diarrhea Low 01/31/2023 Codeine Sulfate Stomach upset Low 01/05/2013 Penicillins Rash Medium 01/05/2013 Medications allopurinoL (ZYLOPRIM) 100 mg tablet 9 Active lisinopril-hydroCHLO ROthiazide (ZESTORETIC) 10-12.5 mg per tablet 0 Active multivitamin with minerals tablet Take 1 tablet by mouth daily Active aspirin (Enteric Coated Aspirin) 81 mg enteric coated tabletIndications:Ce rebral Thromboembolism Prevention Take 1 tablet (81 mg total) by mouth daily 2 Active rosuvastatin (CRESTOR) 10 mg tabletIndications:Mi xed hyperlipidemia Take 1 tablet (10 mg total) by mouth daily 90 tablet 3 3 Active metoprolol XL (TOPROL-XL) 100 mg 24 hr tabletIndications:PA F (paroxysmal atrial fibrillation) TAKE 1 TABLET NIGHTLY 90 tablet 3 5 Active Active Problems Problem Noted Date Diagnosed Date Class 2 obesity 01/31/2023 Elevated hemoglobin A1c 01/31/2023 Elevated blood sugar 08/07/2022 Statin intolerance 08/07/2022 PAF (paroxysmal atrial fibrillation) 07/26/2022 Essential hypertension 07/26/2022 SAM (obstructive sleep apnea) 07/26/2022 Mixed hyperlipidemia 07/26/2022 Hemochromatosis, hereditary 01/24/2018 Resolved Problems Problem Noted Date Diagnosed Date Resolved Date Class 3 obesity 07/26/2022 01/31/2023 Encounters Date Type Department Care Team Description 04/25/2025 Hospital Encounter [facility] ADMIT [address] [place] [address] Cheryl Quarles MD 04/11/2025 3:15 PM CDT Office Visit [facility] Cardiology at [address] [place] [address] Benjamin Suarez MD PAF (paroxysmal atrial fibrillation) (Primary Dx); Mixed hyperlipidemia 04/11/2025 Telephone [facility] Cardiology [address] [address] [address] [place] [phone] Benjamin Suarez MD 03/21/2025 9:15 AM CDT Ancillary Procedure [facility] Cardiology at [address] [place] [address] Chest pain, unspecified type 03/13/2025 10:00 AM CDT Office Visit [facility] Hemat[facility] [address] [place] [address] [place] [phone] Yris Bailey NP Hemochromatosis, hereditary (Primary Dx) 03/13/2025 9:30 AM CDT Lab [facility] at [address] [address] Hemochromatosis, hereditary 03/13/2025 Orders Only [facility] [address] [facility] Floor 6 [place] [address] Dominga Santillan Hemochromatosis, hereditary (Primary Dx) 03/13/2025 Results Follow-Up [facility] Hematology [address] [place] [address] [address] [place] [address] Yris Bailey NP CBC with auto differential, Differential, auto 03/01/2025 11:15 AM CDT Office Visit [facility] Cardiology at [address] [place] [address] Benjamin Suarez MD Chest pain, unspecified type (Primary Dx); PAF (paroxysmal atrial fibrillation) from Last 3 Months Immunizations Immunization Administration Dates Next Due Influenza, Quadrivalent, Spl it, Pediatric, Preservative Free, Intramuscular 04/19/2018 Influenza, Unspecified 03/07/2020,03/25/2018,01/2017 Moderna SARS-CoV-2 Monovalen t Vaccination (12+ YRS) 09/12/2020,08/15/2020 Pneumococcal Conjugate, Unspecified 03/27/2017 Surgical History Surgery Date Site/Laterality Comments CHOLECYSTECTOMY HERNIA REPAIR COLONOSCOPY Medical History Medical History Date Comments Hemochromatosis Hypertension Hypercholesteremia Atrial fibrillation (HCC) 06/07/2021 Family History Medical History Relation Name Comments Cancer Brother Atrial fibrillation Father pacemaker Father Relation Name Status Comments Brother (Age 45) 45 when di agnosed Father Social History Tobacco Use Types Packs/Day Years Used Date Smoking Tobacco: Former Cigarettes Q uit: 2007 Smokeless Tobacco: Never Tobacco Cessation:Counseling Given: Not Answered Alcohol Use Standard Drinks/Week Comments Yes 0 (1 standard drink = 0.6 oz pur e alcohol) AUDIT-C Answer Date Recorded Frequency of Alcohol Consumption Not on file 12/26/2023 Q2: How many drinks containi ng alcohol do you have on a typical day when you are drinking? 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 Gender Identity Not on file Sexual Orientation Not on file Last Filed Vital Signs Vital Sign Reading Time Taken Comments Blood Pressure 124/82 04/11/2025 3:07 PM CDT Pulse 60 04/11/2025 3:07 PM CDT Temperature 36.7 C (98 F) 03/13/2025 9:58 AM CDT Respiratory Rate 17 03/13/2025 9:58 AM CDT Oxygen Saturation 98% 04/11/2025 3:07 PM CDT Inhaled Oxygen Concentration - - Weight 129.3 kg (285 lb) 04/11/2025 3:07 PM CDT Height 182.9 cm (6') 04/11/2025 3:07 PM CDT Body Mass Index 38.65 04/11/2025 3:07 PM CDT Plan of Treatment Health Maintenance Due Date Last Done Comments Colon Cancer Screening-Colonoscopy 1960 Depression Screening 1960 Hepatitis B Screening 1978 Regular Well Visit/Exam 18-64 1978 Zoster Vaccine (1 of 2) 2010 Covid-19 Vaccine (4 - season) 2025 05/07/2021, 09/12/2020, 08/15/2020 Influenza Vaccine (#1) 2025 3, 03/07/2020, 04/19/2018, Additional history exists Prostate Cancer Screening-PSA 03/28/2026 03/28/2024, 08/27/2022, 07/18/2020 DTaP/Tdap/Td Vaccine (3 - Td or Tdap) 07/27/2032 07/27/2022, 12/13/2011, 05/27/1999 Pneumococcal vaccine <65 Aged Out 03/27/2017, 0802/2016 No longer eligible based on patient's age to complete this topic Hepatitis C Screening Completed 08/27/2022 Procedures Procedure Name Priority Date/Time Associated Diagnosis Comments POCT LIPID PANEL Routine 04/11/2025 3:04 PM CDT Mixed hyperlipidemia STRESS TEST ONLY TREADMILL Routine 03/21/2025 9:44 AM CDT Chest pain, unspecified type RETICULOCYTES Routine 03/13/2025 10:14 AM CDT Hemochromatosis, hereditary DIFFERENTIAL AUTO Routine 03/13/2025 10: 14 AM CDT Hemochromatosis, hereditary CBC WITH AUTO DIFFERENTIAL Routine 03/13/2025 10:14 AM CDT Hemochromatosis, hereditary EGFR Routine 03/13/2025 9:29 AM CDT Hemochromatosis, hereditary COMPREHENSIVE METABOLIC PANEL Routine 03/13/2025 9:29 AM CDT Hemochromatosis, hereditary FERRITIN Routine 03/13/2025 9:29 AM CDT Hemochromatosis, hereditary IRON PROFILE W/ IBC Routine 03/13/2025 9 :29 AM CDT Hemochromatosis, hereditary ECG 12-LEAD Routine 03/01/2025 11:19 AM CDT Chest pain, unspecified type PSA SCREEN Routine 03/28/2024 8:42 AM CDT HEPATITIS C RNA, QUANTITATIVE, PCR Routine 08/27/2022 12:42 PM SPACE OPERATIONS OFFICER from Last 3 Months or Most Recently Relevant to Health Maintenance Results * (ABNORMAL) POCT lipid panel (04/11/2025 3:04 PM CDT) Cholesterol, POC 169 <200 MG/DL HDL, POC 33(A) >=40 mg/dL Triglycerides, POC 141 <=149 mg/dL LDL Cholesterol POC 108 <=129 mg/dL Chol/HDL Ratio, POC 5.1 NONE Non-HDL Cholesterol, POC 136 NONE mg/dL Cholesterol Total, POC 169 30 - 199 mg/dL Capillary blood 04/11/2025 3 :04 PM CDT Benjamin Suarez MD POINT OF CARE TEST ORDER FRANSICO Final Result * Stress Treadmill Test (03/21/2025 9:44 AM CDT) Anatomical Region Laterality Modality Electrocardiogra phy Narrative 03/21/2025 4:36 PM CDT Table formatting from the original result was not included. Adult Stress Test Report 03/21/2025 Requesting Physician: @PCP@ Study exercise ECG Pre-test ECG normal Level of Stress 73% age-predicted max HR 4.7 METS Achieved Functional Capacity moderately impaired Abnormal Symptoms typical exertional chest pain Heart Rate Response normal BP Response normal Stress ECG nondiagnostic changes Impression: Graded exercise test to 73% of maximum predicted heart rate Failure to achieve 85% heart rate reduces diagnostic sensitivity Low functional capacity Exercise-induced chest pain Mild lateral upsloping ST segment depression which does not meet strict diagnostic criteria Interpreted by: Benjamin Suarez MD 03/21/2025 Benjamin Suarez MD CV STRESS PROCEDURES Fin al Result * (ABNORMAL) Differential, auto (03/13/2025 10:14 AM CDT) Neutrophil abs 5.07 1.50 - 6.50 K/cumm Comment:Testing performed by : [address] [address] Imm gran abs 0.10 0.00 - 0.10 K/cumm KRISTIN Comment:Testing performed by : [address] [address] Lymphocyte abs 1.87 0.80 - 3.30 K/cumm KRISTIN Comment:Testing performed by : [address] [address] Monocyte abs 0.68 0.20 - 0.80 K/cumm [facility] Comment:Testing performed by : [address] [address] Eosinophil abs 0.78(H) 0.00 - 0.50 K/cumm [facility] Comment:Testing performed by : [address] [address] Basophil abs 0.10 0.00 - 0.10 K/cumm [facility] Comment:Testing performed by : [address] [address] Neutrophil pct 58.9 % [facility] Comment: Interpretive Data Percent cell count reference ranges are not reported, since discordance with absolute values may lead to misinterpretation of CBC data. Current Interpretive Data was last revised on 2017. Testing performed by: [address] [address] Imm gran pct 1.2 % [facility] Comment: Interpretive Data Percent cell count reference ranges are not reported, since discordance with absolute values may lead to misinterpretation of CBC data. Current Interpretive Data was last revised on 2017. Testing performed by: [address] [address] Lymphocyte pct 21.7 % [facility] Comment: Interpretive Data Percent cell count reference ranges are not reported, since discordance with absolute values may lead to misinterpretation of CBC data. Current Interpretive Data was last revised on 2017. Testing performed by: [address] [address] Monocyte pct 7.9 % [facility] Comment: Interpretive Data Percent cell count reference ranges are not reported, since discordance with absolute values may lead to misinterpretation of CBC data. Current Interpretive Data was last revised on 2017. Testing performed by: [address] [address] Eosinophil pct 9.1 % [facility] Comment: Interpretive Data Percent cell count reference ranges are not reported, since discordance with absolute values may lead to misinterpretation of CBC data. Current Interpretive Data was last revised on 2017. Testing performed by: [address] [address] Basophil pct 1.2 % [facility] Comment: Interpretive Data Percent cell count reference ranges are not reported, since discordance with absolute values may lead to misinterpretation of CBC data. Current Interpretive Data was last revised on 2017. Testing performed by: [address] [address] Blood 03/13/2025 10:1 4 AM CDT 03/13/2025 10:15 AM CDT us Yris Bailey NP LAB BLOOD ORDERABLES Fin al Result [facility] [address] [facility] [place] [address] * CBC with auto differential (03/13/2025 10:14 AM CDT) WBC 8.60 3.80 - 9.90 K/cumm Comment:Testing performed by : [address] [address] Hgb 14.9 13.0 - 17.5 g/dL KRISTIN Comment:Testing performed by : [address], [address] Hct 42.8 38.9 - 50.3 % KRISTIN Comment:Testing performed by : [address] [address] Plt 202 150 - 400 K/cumm KRISTIN Comment:Testing performed by : [address] [address] MPV 10.9 9.1 - 12.3 fL KRISTIN Comment:Testing performed by : [address], [address] RBC 4.63 4.30 - 5.80 M/cumm KRISTIN Comment:Testing performed by : [address] [address] MCV 92.4 81.3 - 96.4 fL KRISTIN Comment:Testing performed by : [address] [address] MCH 32.2 27.1 - 33.3 pg KRISTIN Comment:Testing performed by : [address] [address] MCHC 34.8 32.3 - 35.7 g/dL KRISTIN Comment:Testing performed by : [address] [address] RDW CV 13.0 11.1 - 14.9 % KRISTIN Comment:Testing performed by : [address], [address] RDW SD 44.1 35.7 - 48.1 fL KRISTIN Comment:Testing performed by : [address] [address] NRBC abs 0.00 0.00 - 0.01 K/cumm KRISTIN Comment:Testing performed by : [address] [address] ANC Prelim 5.07 1.50 - 6.50 K/cumm KRISTIN Comment: Interpretive Data The rapid ANC is a preliminary automated count and may vary from the final ANC (Neut Abs) reported in the WBC differential that follows. Current interpretive data was last revised 2024. Testing performed by: [address] [address] Blood 03/13/2025 10:1 4 AM CDT 03/13/2025 10:15 AM CDT Yris Bailey CORPORATE WEBMASTER LAB BLOOD ORDERABLES Fin al Result Performing Organization Address [facility] Co de Phone Number KRISTIN [address] [employer] [place] [address] * Reticulocyte Count (03/13/2025 10:14 AM CDT) [facility], absolute 65 20 - 87 K/cumm Comment:Testing performed by : [address] [address] Retics 1.4 0.4 - 2.9 % KRISTIN Comment:Testing performed by : [address] [address] Reticulocyte Hgb 37.8 30.5 - 38.0 pg [facility] Comment:Testing performed by : [address] [address] Blood 03/13/2025 10:1 4 AM CDT 03/13/2025 10:15 AM CDT Ioana Pack CORPORATE WEBMASTER LAB BLOOD ORDERABLES Final Result Performing Organization Address [facility] Co de Phone Number [address] [place] [address] * eGFR (03/13/2025 9:29 AM CDT) [facility] eGFR >90 >=60 mL/min/1. 73 m2 Comment: Interpretive Data Reference Interval Normal >/= 90 mL/min/1.73m2 Mildly decreased* 60 - 89 mL/min/1.73m2 Mildly to moderately decreased 45 - 59 mL/min/1.73m2 Moderately to severely decreased 30 - 44 mL/min/1.73m2 Severely decreased 15 - 29 mL/min/1.73m2 Kidney Failure < 15 mL/min/1.73m2 *Relative to young adult level Estimated glomerular filtration rate is determined by the 2020 CKD-EPI equation recommended by the National Kidney Foundation (A Unifying Approach to GFR Estimation: Recommendations of the NKF-ASK Task Force on Reassessing the Inclusion of Race in Diagnosing Kidney Disease, JASN 2020). The CKD-EPI equation should not be used for patients with unstable renal function and has not been validated in children and those over 70. Current interpretive data was last reviewed 2021. Testing performed by: [address] [address] Blood 03/13/2025 9:29 AM CDT 03/13/2025 9:34 AM CDT Ioana Pack LAB BLOOD ORDERABLES Final Result Performing Organization Address [facility] de Phone Number [address] [facility] [place] [place] [address] * (ABNORMAL) Iron profile w/ IBC (03/13/2025 9:29 AM CDT) Iron 161(H) 50 - 150 mcg/dL Comment:Testing performed by : [address] [address] TIBC 271 250 - 400 mcg/dL KRISTIN Comment:Testing performed by : [address] [address] Transferrin saturation 59(H) 20 - 50 % KRISTIN Comment:Testing performed by : [address] [address] Blood 03/13/2025 9:29 AM CDT 03/13/2025 11:44 AM CDT Ioana Pack NP LAB BLOOD ORDERABLES Final Result Performing Organization Address [facility] Co de Phone Number [facility] [address] [facility] [place] [place] [address] * Ferritin (03/13/2025 9:29 AM CDT) Pathologist [facility] Ferritin 89 30 - 400 ng/mL Comment:Testing performed by : [address] [address] Blood 03/13/2025 9:29 AM CDT 03/13/2025 11:44 AM CDT Ioana Pack NP LAB BLOOD ORDERABLES Final Result KRISTIN [address] [facility] [place] [address] * Comprehensive metabolic panel (03/13/2025 9:29 AM CDT) Pathologist [facility] Sodium 139 135 - 145 mmol/L Comment:Testing performed by : [address] [address] Potassium, pl 4.2 3.3 - 4.9 mmol/L KRISTIN Comment:Testing performed by : [address] [address] Chloride 103 97 - 110 mmol/L KRISTIN Comment:Testing performed by : [address] [address] CO2 23 22 - 32 mmol/L KRISTIN Comment:Testing performed by : [address] [address] Anion gap 13 2 - 15 mmol/L KRISTIN Comment:Testing performed by : [address] [address] BUN 19 6 - 25 mg/dL KRISTIN Comment:Testing performed by : [address] [address] Creatinine 0.80 0.80 - 1.30 mg/dL KRISTIN Comment:Testing performed by : [address] [address] Glucose 110 70 - 199 mg/dL KRISTIN Comment: Interpretive Data Fasting glucose >/= 126 mg/dl is diagnostic for diabetes. Fasting is defined as no caloric intake for at least 8 hours. Fasting glucose between 100 mg/dl to 125 mg/dl is diagnostic of prediabetes. In a patient with classic symptoms of hyperglycemia or hyperglycemic crisis, a random glucose >/= 200 mg/dl is diagnostic for diabetes. In the absence of unequivocal hyperglycemia, results should be confirmed by repeat testing. The classification and Diagnosis of Diabetes Diabetes Care 202; 46: S19-S40. Current interpretive data was last revised 2022. Testing performed by: [address] [address] Calcium 9.8 8.5 - 10.3 mg/dL KRISTIN Comment:Testing performed by : [address] [address] Bilirubin, total 0.7 0.1 - 1.2 mg/dL KRISTIN Comment:Testing performed by : [address] [address] Protein, pl 7.1 6.5 - 8.5 g/dL KRISTIN Comment:Testing performed by : [address] [address] Albumin 4.0 3.5 - 5.0 g/dL KRISTIN Comment:Testing performed by : [address] [address] Alk phos 40 40 - 130 Units/L KRISTIN Comment:Testing performed by : [address] [address] ALT 19 7 - 55 Units/L KRISTIN Comment:Testing performed by : [address] [address] AST 21 10 - 50 Units/L KRISTIN Comment:Testing performed by : [address] [address] Blood 03/13/2025 9:29 AM CDT 03/13/2025 9:34 AM CDT us Ioana Pack NP LAB BLOOD ORDERABLES Final Result [facility] [address] [facility] [place] [address] * ECG 12 lead (03/01/2025 11:19 AM CDT) us Benjamin Suraez MD ECG ORDERABLES Final Re sult * PSA screen (03/28/2024 8:42 AM CDT) PSA-Total 0.68 <=5.40 ng/mL Comment: Interpretive Data AGE SEX REFERENCE INTERVAL 0 minutes-150 years Female None 0 minutes-49 years Male None 50-59 years Male 0-3.90 60-69 years Male 0-5.40 70-79 years Male 0-6.20 80-150 years Male 0-6.20 The Sabrina PSA Total assay procedure was used. Results from different manufacturers or methods may not be comparable. Serial testing should be performed using the same method. Current interpretive data last revised 21. Testing performed by: [facility], [address] [place] [address]., [address] Blood 03/28/2024 8:42 AM CDT 03/28/2024 10:00 AM CDT us Nikki Vigil MD LAB BLOOD ORDERABLES Fin al Result KRISTIN [address] [facility] [place] [address] * Hepatitis C (HCV) RNA PCR, quantitative (08/27/2022 12:42 PM SPACE OPERATIONS OFFICER) HCV RNA result Not Detected KRISTIN Comment: The quantifiable range of this assay is 15 IU/mL to 100,000,000 IU/mL (1.18 log IU/mL to 8.00 log IU/mL). Testing was performed by the AMY 6800 HCV Test (Sabrina [employer] Testing performed at [facility] Current Interpretive Data was last revised on 2021 Testing performed by: [facility], [address] [facility] [place]., [address] Blood 08/27/2022 12:4 2 PM SPACE OPERATIONS OFFICER 08/27/2022 9:44 PM SPACE OPERATIONS OFFICER us Nikki Vigil MD LAB MICROBIOLOGY - GENER AL ORDERABLES Final Result KRISTIN MH [address] [facility] [place] [address] from Last 3 Months or Most Recently Relevant to Health Maintenance Insurance [facility] CHOICE PLUS [facility] HMO/PPO Address: [address] [place] [id number] [facility] CHOICE PLUS [facility] HMO/PPO Address: [address] [address] [place] [address] [facility] CHOICE PLUS [facility] HMO/PPO Address: [place] [address] Care Teams Airplane Inspector Relationship Specialty Start Date End Date Nikki Vigil MD PCP - General Family Medicine 06/15/23 Ioana Pack NP [address] [place] [address] Nurse Practitioner Nurse Practitioner 06/15/23
--- OUTSIDE RECORDS SUMMARY | 2025-04-25 15:55 | XMS_ITS | Encounter Summary ---
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 Unavailable Encounter Details Date Type Department Care Team (Late st Contact Info) Description 04/25/2025 Hospital Encounter CH ADMIT [address] [place] [address] [place] [address] [facility] [address] [place], [place] [id number] Social History Tobacco Use Types Packs/Day Years Used Date Smoking Tobacco: Former Cigarettes Q uit: 2008 Smokeless Tobacco: Never Alcohol Use Standard Drinks/Week Comments Yes 0 [...] on file 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
[2025-04-25 16:23] LABS: Hemoglobin A1C 5.9 % (<5.7)
[2025-04-25] MEDS: METOPROLOL SUCCINATE EXT REL 100 MG TABCR PO (20:17)
[2025-04-25 22:03] LABS: Cholesterol 166 mg/dL (0-200); HDL Direct 44 mg/dL; Triglycerides 119 mg/dL (<150)
== END 2025-04-26 00:48 | disposition short-term general hospital (02) | DRG 287 ==
LOC: ANHCPC 14:13 → ANHIMU 15:54
PROVIDERS: Admitting Provider Internal Medicine; PCP Student in an Organized Health Care Education/Training Program; Visit Provider Internal Medicine
PROC: 4A023N7 Measurement of Cardiac Sampling and Pressure, Left Heart, Percutaneous Approach (ICD-10-PCS; CPT 93452; principal; 2025-04-25 10:00)
DX: I25.110 Atherosclerotic heart disease of native coronary artery with unstable angina pectoris (principal); I48.0 Paroxysmal atrial fibrillation; E78.2 Mixed hyperlipidemia; E83.119 Hemochromatosis, unspecified; I10 Essential (primary) hypertension; Z79.02 Long term (current) use of antithrombotics/antiplatelets; Z79.82 Long term (current) use of aspirin; Z87.891 Personal history of nicotine dependence
CPT/HCPCS: 36415; 80048; 80061; 83036; 85025; 93005; 93458; A9270; C1887; C1894; J1644; J2003; J2250; J2405; J3010; J7030; J7040